=== PATIENT | male | born 1965 | race Asian ===

== ENCOUNTER 2018-12-30 17:04 | Emergency (ER) | payer OTHER ==
[~2018-12-30] VITALS: Ht 167.6 cm; Wt 70.0 kg
[2018-12-30] MEDS ORDERED: MULT1CAP32 PO (17:21)
[2018-12-30] MEDS ORDERED: OMEG1CAP2 PO (17:21)
[2018-12-30] MEDS ORDERED: PERTUSS(ACELL),DIPH,TET VAC/PF 0.5 ML VIAL IM ONE (17:45)
[2018-12-30 18:27] VITALS: BP 135/93
== END 2018-12-30 19:30 | disposition home or self-care (01) ==
LOC: EEVIPCON 17:06 → EMS 17:06
DX: S61.230A Puncture wound without foreign body of right index finger without damage to nail, initial encounter (principal); W46.0XXA Contact with hypodermic needle, initial encounter; Y93.89 Activity, other specified; Y92.89 Other specified places as the place of occurrence of the external cause; Y99.8 Other external cause status
CPT/HCPCS: 84460; 86703; 86803; 87340; 90471; 90715